=== PATIENT | male | born 1970 | race African-American/Black ===

== ENCOUNTER 2016-11-27 10:47 | Inpatient (IN) | payer MEDICAID ==
[~2016-11-27] VITALS: Ht 182.9 cm; Wt 76.2 kg
[~2016-11-27 10:47] MED LIST: PHEN100C4 PO
[2016-11-27] MEDS ORDERED: SODIUM CHLORIDE 0.9% 1,000 ML IV ONE (11:09)
[2016-11-27 11:48] LABS: BASOPHILS % 0.8 % (0.0-2.0); EOSINOPHILS % 0.2 % (0.0-5.0); HEMATOCRIT. 38.5 % (42.0-52.0); HEMOGLOBIN. 12.6 g/dL (14.0-18.0); LYMPHOCYTES % 13.6 % (20.0-50.0); MEAN CORPUSCULAR HGB CONC 32.7 g/dL (31.0-37.0); MEAN CORPUSCULAR VOLUME 85.7 fL (80.0-94.0); MEAN PLATELET VOLUME 7.5 fl (7.4-10.4); MONOCYTES % 4.8 % (2.0-8.0); NEUTROPHILS % 80.6 % (40.0-76.0); PLATELET 264 x1000/uL (130-400); RED BLOOD CELL COUNT 4.49 mill/uL (4.7-6.1); RED CELL DISTRIBUTION WIDTH 14.6 % (11.6-14.6); WHITE BLOOD COUNT 9.1 x1000/uL (4.5-11.0)
[2016-11-27 11:49] LABS: CHLORIDE 107 mEq/L (98-107); INDEX HEMOLYSI 1 (1-3); INDEX ICTERIC 1 (1-4); INDEX LIPEMIC 1 (1-3)
[2016-11-27 11:52] LABS: INR 1.1; PROTHROMBIN TIME 11.2 sec
[2016-11-27 11:58] LABS: ALANINE AMINOTRANSFERASE 37 IU/L (13-61); ALBUMIN 3.3 g/dL (3.4-5.0); ANION GAP 15; CALCIUM 8.6 mg/dL (8.5-10.1); CARBON DIOXIDE 22 mEq/L (21-32); ETHANOL BLOOD < 10 mg/dL; PHENYTOIN 3.4 ug/mL (10-20); UREA NITROGEN BLOOD 16 mg/dL (7-21); eGFR > 60 mL/min (>60)
[2016-11-27 12:15] LABS: CLARITY URINE CLEAR (CLEAR); COLOR URINE YELLOW (YELLOW); GLUCOSE URINE NEGATIVE (NEGATIVE); KETONES URINE TRACE (NEGATIVE); LEUKOCYTE ESTERASE URINE NEGATIVE (NEGATIVE); NITRITE URINE NEGATIVE (NEGATIVE); OCCULT BLOOD URINE 1+ (NEGATIVE); PROTEIN URINE NEGATIVE (NEGATIVE); SPECIFIC GRAVITY URINE 1.017 (1.005-1.030); UROBILINOGEN URINE 0.2 E.U./dL (0.2-1.0)
[2016-11-27 12:35] LABS: *AMPHETAMINES SCREEN URINE NEGATIVE (NEGATIVE); *BARBITURATES SCREEN URINE NEGATIVE (NEGATIVE); *BENZODIAZEPINES SCREEN URINE NEGATIVE (NEGATIVE); *COCAINE SCREEN URINE NEGATIVE (NEGATIVE); CANNABINOID URINE SCREEN PRESUMTIVE POSITIVE (NEGATIVE); ECSTASY MDMA SCREEN URINE NEGATIVE (NEGATIVE); METHADONE URINE SCREEN NEGATIVE (NEGATIVE); OPIATES URINE SCREEN NEGATIVE (NEGATIVE); PHENCYCLIDINE URINE SCREEN NEGATIVE (NEGATIVE)
[2016-11-27 12:43] LABS: SQUAMOUS EPITHELIAL CELL URINE RARE /lpf (RARE/1+); URIC ACID CRYSTALS URINE 3+ /lpf
[2016-11-27 12:44] LABS: BACTERIA URINE TRACE; RBC URINE NONE SEEN /hpf (0-2); WBC URINE NONE SEEN /hpf (0-2)
[2016-11-27 12:45] LABS: MUCUS URINE TRACE /lpf (NONE/TRACE)
[2016-11-27] MEDS ORDERED: PHENYTOIN SODIUM 1,000 MG in SODIUM CHLORIDE 0.9% 100 ML IV ONE (12:45)
[2016-11-27] MEDS ORDERED: LORAZEPAM 2MG/ML CPJ IV ONE ×3 (13:45→16:45)
[2016-11-27] MEDS: LORAZEPAM 2MG/ML CPJ IM PRN (15:00)
[2016-11-27] MEDS ORDERED: IPRATROPIUM/ALBUTEROL 0.5-3(2.5)MG/3ML NEB INH PRN (16:45)
[2016-11-27] MEDS ORDERED: HYDROCODONE/ACETAMINOPHEN 5/325MG TABLET PO PRN (16:45)
[2016-11-27] MEDS ORDERED: LORAZEPAM 2MG/ML CPJ IV PRN (16:45)
[2016-11-27] MEDS ORDERED: ONDANSETRON HCL 4MG/2ML VIAL IV PRN (16:45)
[2016-11-27] MEDS ORDERED: DIPHENHYDRAMINE 50MG/ML VIAL IV PRN (16:45)
[2016-11-27] MEDS ORDERED: CLONIDINE 0.1MG TABLET PO PRN (16:45)
[2016-11-27] MEDS ORDERED: ACETAMINOPHEN 325MG TABLET PO PRN (16:45)
[2016-11-27 18:20] VITALS: BP 127/85
[2016-11-27 20:00] VITALS: BP 134/88
[2016-11-27] MEDS ORDERED: PHENYTOIN SODIUM EXTENDED 100MG CAPSULE PO SCH (21:00)
[2016-11-28] VITALS: BP 104/83
[2016-11-28 04:00] VITALS: BP 118/85
[2016-11-28 06:47] LABS: BASOPHILS % 0.5 % (0.0-2.0); EOSINOPHILS % 0.3 % (0.0-5.0); HEMATOCRIT. 39.8 % (42.0-52.0); LYMPHOCYTES % 22.7 % (20.0-50.0); MEAN CORPUSCULAR HEMOGLOBIN 27.5 pg (28.0-32.0); MEAN CORPUSCULAR HGB CONC 32.8 g/dL (31.0-37.0); MEAN PLATELET VOLUME 7.8 fl (7.4-10.4); MONOCYTES % 6.1 % (2.0-8.0); NEUTROPHILS % 70.4 % (40.0-76.0); PLATELET 285 x1000/uL (130-400); RED BLOOD CELL COUNT 4.74 mill/uL (4.7-6.1); RED CELL DISTRIBUTION WIDTH 14.1 % (11.6-14.6); WHITE BLOOD COUNT 7.8 x1000/uL (4.5-11.0)
[2016-11-28 08:00] VITALS: BP 121/67
[2016-11-28 08:12] LABS: ALANINE AMINOTRANSFERASE 37 IU/L (13-61); ALBUMIN 3.5 g/dL (3.4-5.0); ANION GAP 14; CARBON DIOXIDE 23 mEq/L (21-32); CHLORIDE 104 mEq/L (98-107); INDEX HEMOLYSI 1 (1-3); INDEX ICTERIC 1 (1-4); INDEX LIPEMIC 1 (1-3); PHENYTOIN 11.9 ug/mL (10-20); UREA NITROGEN BLOOD 11 mg/dL (7-21); eGFR > 60 mL/min (>60)
[2016-11-28] MEDS ORDERED: PHENYTOIN SODIUM EXTENDED 100MG CAPSULE PO SCH (09:00)
[2016-11-28 11:40] VITALS: BP 108/72
[2016-11-28 15:53] VITALS: BP 139/80
[2016-11-28 20:00] VITALS: BP 120/82
[2016-11-29] VITALS: BP 110/80
[2016-11-29 04:00] VITALS: BP 111/74
[2016-11-29 06:48] LABS: BASOPHILS % 0.9 % (0.0-2.0); EOSINOPHILS % 0.8 % (0.0-5.0); HEMATOCRIT. 40.6 % (42.0-52.0); HEMOGLOBIN. 13.3 g/dL (14.0-18.0); LYMPHOCYTES % 42.7 % (20.0-50.0); MEAN CORPUSCULAR HEMOGLOBIN 28.2 pg (28.0-32.0); MEAN CORPUSCULAR HGB CONC 32.7 g/dL (31.0-37.0); MEAN CORPUSCULAR VOLUME 86.2 fL (80.0-94.0); MEAN PLATELET VOLUME 7.7 fl (7.4-10.4); MONOCYTES % 10.4 % (2.0-8.0); NEUTROPHILS % 45.2 % (40.0-76.0); PLATELET 254 x1000/uL (130-400); RED BLOOD CELL COUNT 4.71 mill/uL (4.7-6.1); RED CELL DISTRIBUTION WIDTH 14.2 % (11.6-14.6); WHITE BLOOD COUNT 4.6 x1000/uL (4.5-11.0)
[2016-11-29 07:24] LABS: ANION GAP 14; CALCIUM 9.2 mg/dL (8.5-10.1); CARBON DIOXIDE 26 mEq/L (21-32); CHLORIDE 103 mEq/L (98-107); INDEX HEMOLYSI 1 (1-3); INDEX ICTERIC 1 (1-4); INDEX LIPEMIC 1 (1-3); UREA NITROGEN BLOOD 16 mg/dL (7-21); eGFR > 60 mL/min (>60)
[2016-11-29 08:00] VITALS: BP 108/78
[2016-11-29] MEDS ORDERED: PHEN100C4 PO ×2 (11:31→14:19)
[2016-11-29 12:00] VITALS: BP 119/81
[2016-11-29 14:12] VITALS: BP 119/81
== END 2016-11-29 15:45 | disposition home or self-care (01) | DRG 53 ==
LOC: ER 11:01 → 8WST 14:51
PROVIDERS: ADMIT Internal Medicine; ATTEND Internal Medicine
DX: G40.901 Epilepsy, unspecified, not intractable, with status epilepticus (principal); I10 Essential (primary) hypertension; D64.9 Anemia, unspecified; F12.90 Cannabis use, unspecified, uncomplicated; Z87.828 Personal history of other (healed) physical injury and trauma; Z91.19 Patient's noncompliance with other medical treatment and regimen
CPT/HCPCS: 36415; 70450; 80048; 80053; 80185; 80305; 81001; 84484; 85025; 85610; 93005; 93306; 96365; 96366; 96372; 96375; 96376; 99291; G0482; J1165; J2060; J7030; J7050

== ENCOUNTER 2017-01-18 09:46 | Inpatient (IN) | payer MEDICAID ==
[~2017-01-18] VITALS: Ht 185.4 cm; Wt 81.6 kg
[2017-01-18 10:28] LABS: CLARITY URINE CLEAR (CLEAR); COLOR URINE YELLOW (YELLOW); GLUCOSE URINE NEGATIVE (NEGATIVE); KETONES URINE NEGATIVE (NEGATIVE); LEUKOCYTE ESTERASE URINE NEGATIVE (NEGATIVE); NITRITE URINE NEGATIVE (NEGATIVE); OCCULT BLOOD URINE 2+ (NEGATIVE); PROTEIN URINE NEGATIVE (NEGATIVE); SPECIFIC GRAVITY URINE 1.013 (1.005-1.030); UROBILINOGEN URINE 0.2 E.U./dL (0.2-1.0)
[2017-01-18 10:36] LABS: BASOPHILS % 0.4 % (0.0-2.0); HEMATOCRIT. 42.5 % (42.0-52.0); HEMOGLOBIN. 14.1 g/dL (14.0-18.0); LYMPHOCYTES % 7.6 % (20.0-50.0); MEAN CORPUSCULAR HEMOGLOBIN 28.1 pg (28.0-32.0); MEAN CORPUSCULAR VOLUME 85.1 fL (80.0-94.0); MEAN PLATELET VOLUME 7.6 fl (7.4-10.4); MONOCYTES % 4.7 % (2.0-8.0); NEUTROPHILS % 87.3 % (40.0-76.0); PLATELET 251 x1000/uL (130-400); RED BLOOD CELL COUNT 4.99 mill/uL (4.7-6.1); RED CELL DISTRIBUTION WIDTH 14.9 % (11.6-14.6)
[2017-01-18 10:43] LABS: CHLORIDE 111 mEq/L (98-107); PROTHROMBIN TIME 10.2 sec
[2017-01-18 10:51] LABS: *AMPHETAMINES SCREEN URINE NEGATIVE (NEGATIVE); *BARBITURATES SCREEN URINE NEGATIVE (NEGATIVE); *BENZODIAZEPINES SCREEN URINE NEGATIVE (NEGATIVE); *COCAINE SCREEN URINE NEGATIVE (NEGATIVE); CANNABINOID URINE SCREEN PRESUMTIVE POSITIVE (NEGATIVE); METHADONE URINE SCREEN NEGATIVE (NEGATIVE); OPIATES URINE SCREEN NEGATIVE (NEGATIVE); PHENCYCLIDINE URINE SCREEN NEGATIVE (NEGATIVE)
[2017-01-18 10:53] LABS: CARBON DIOXIDE 23 mEq/L (21-32); ETHANOL BLOOD < 10 mg/dL
[2017-01-18] MEDS ORDERED: LORAZEPAM 2MG/ML CPJ ONE (12:08)
[2017-01-18] MEDS ORDERED: LORAZEPAM 2MG/ML CPJ IV ONE ×2 (12:15→12:45)
[2017-01-18] MEDS ORDERED: PHENYTOIN SODIUM 1,000 MG in SODIUM CHLORIDE 0.9% 100 ML IV ONE (12:45)
[2017-01-18] MEDS ORDERED: IPRATROPIUM/ALBUTEROL 0.5-3(2.5)MG/3ML NEB INH PRN (13:00)
[2017-01-18] MEDS ORDERED: LORAZEPAM 2MG/ML CPJ IV PRN (13:00)
[2017-01-18] MEDS ORDERED: HYDROCODONE/ACETAMINOPHEN 5/325MG TABLET PO PRN (13:00)
[2017-01-18] MEDS ORDERED: CLONIDINE 0.1MG TABLET PO PRN (13:00)
[2017-01-18] MEDS ORDERED: ACETAMINOPHEN 325MG TABLET PO PRN (13:00)
[2017-01-18] MEDS ORDERED: DIPHENHYDRAMINE 50MG/ML VIAL IV PRN (13:00)
[2017-01-18] MEDS ORDERED: ONDANSETRON HCL 4MG/2ML VIAL IV PRN (13:00)
[2017-01-18 14:40] LABS: ETHANOL BLOOD < 10 mg/dL; TROPONIN I 0.02 ng/mL (0.00-0.04)
[2017-01-18 16:00] VITALS: BP 166/101
[2017-01-18 17:16] VITALS: BP 165/100
[2017-01-18 20:00] VITALS: BP 109/86
[2017-01-18] MEDS: PHENYTOIN SODIUM EXTENDED 100MG CAPSULE PO SCH (21:43)
[2017-01-19] VITALS: BP 125/86
[2017-01-19 04:00] VITALS: BP 125/92
[2017-01-19 06:11] LABS: BASOPHILS % 0.4 % (0.0-2.0); EOSINOPHILS % 0.1 % (0.0-5.0); HEMATOCRIT. 41.5 % (42.0-52.0); HEMOGLOBIN. 13.8 g/dL (14.0-18.0); LYMPHOCYTES % 19.8 % (20.0-50.0); MEAN CORPUSCULAR HEMOGLOBIN 28.3 pg (28.0-32.0); MEAN CORPUSCULAR VOLUME 84.9 fL (80.0-94.0); MEAN PLATELET VOLUME 7.9 fl (7.4-10.4); MONOCYTES % 7.8 % (2.0-8.0); NEUTROPHILS % 71.9 % (40.0-76.0); PLATELET 249 x1000/uL (130-400); RED BLOOD CELL COUNT 4.89 mill/uL (4.7-6.1); RED CELL DISTRIBUTION WIDTH 14.6 % (11.6-14.6)
[2017-01-19 07:02] LABS: CARBON DIOXIDE 24 mEq/L (21-32); CHLORIDE 108 mEq/L (98-107); HDL CHOLESTEROL 82 mg/dL (40-59); LDL CHOLESTEROL 133 mg/dL (5-100); PHENYTOIN 16.2 ug/mL (10-20)
[2017-01-19 08:00] VITALS: BP 116/78
[2017-01-19 12:00] VITALS: BP 124/75
[2017-01-19 16:00] VITALS: BP 119/78
[2017-01-19 20:00] VITALS: BP 117/80
[2017-01-19] MEDS ORDERED: ATORVASTATIN CALCIUM 20MG TABLET PO SCH (21:00)
[2017-01-19] MEDS: PHENYTOIN SODIUM EXTENDED 100MG CAPSULE PO SCH (21:35)
[2017-01-20] VITALS: BP 120/82
[2017-01-20 04:00] VITALS: BP 116/82
[2017-01-20 05:51] LABS: BASOPHILS % 0.8 % (0.0-2.0); EOSINOPHILS % 0.6 % (0.0-5.0); HEMATOCRIT. 42.8 % (42.0-52.0); HEMOGLOBIN. 14.3 g/dL (14.0-18.0); LYMPHOCYTES % 43.6 % (20.0-50.0); MEAN CORPUSCULAR HEMOGLOBIN 28.1 pg (28.0-32.0); MEAN CORPUSCULAR VOLUME 84.3 fL (80.0-94.0); MEAN PLATELET VOLUME 7.6 fl (7.4-10.4); MONOCYTES % 10.1 % (2.0-8.0); NEUTROPHILS % 44.9 % (40.0-76.0); PLATELET 240 x1000/uL (130-400); RED BLOOD CELL COUNT 5.09 mill/uL (4.7-6.1); RED CELL DISTRIBUTION WIDTH 14.5 % (11.6-14.6)
[2017-01-20 06:23] LABS: CHLORIDE 104 mEq/L (98-107)
[2017-01-20 06:33] LABS: CARBON DIOXIDE 25 mEq/L (21-32); PHENYTOIN 13.9 ug/mL (10-20)
[2017-01-20 08:00] VITALS: BP 114/75
[2017-01-20 11:11] VITALS: BP 114/75
[2017-01-20 12:00] VITALS: BP 118/69
== END 2017-01-20 14:03 | disposition home or self-care (01) | DRG 53 ==
LOC: ER 09:47 → 7WST 12:51
PROVIDERS: ADMIT Internal Medicine; ATTEND Internal Medicine
DX: G40.901 Epilepsy, unspecified, not intractable, with status epilepticus (principal); G93.40 Encephalopathy, unspecified; E78.00 Pure hypercholesterolemia, unspecified; F12.90 Cannabis use, unspecified, uncomplicated; F17.200 Nicotine dependence, unspecified, uncomplicated; Z91.14 Patient's other noncompliance with medication regimen; Z87.828 Personal history of other (healed) physical injury and trauma; Z91.19 Patient's noncompliance with other medical treatment and regimen
CPT/HCPCS: 36415; 70450; 80048; 80053; 80061; 80185; 80305; 81001; 83735; 84484; 85025; 85610; 87040; 96365; 96375; 97161; 97165; 99291; G0482; J1165; J2060; J7050

== ENCOUNTER 2017-11-15 10:48 | Emergency (ER) | payer MEDICAID ==
[~2017-11-15] VITALS: Ht 188 cm; Wt 82.0 kg
[2017-11-15] MEDS ORDERED: SODIUM CHLORIDE 0.9% 1,000 ML IV ONE (11:13)
[2017-11-15] MEDS ORDERED: LEVETIRACETAM 500MG PREMIX 100 ML IV ONE (11:15)
[2017-11-15 11:53] LABS: BASOPHILS % 0.2 % (0.0-2.0); HEMATOCRIT. 40.7 % (42.0-52.0); HEMOGLOBIN. 13.5 g/dL (14.0-18.0); LYMPHOCYTES % 8.3 % (20.0-50.0); MEAN CORPUSCULAR HEMOGLOBIN 28.3 pg (28.0-32.0); MEAN PLATELET VOLUME 7.5 fl (7.4-10.4); MONOCYTES % 5.6 % (2.0-8.0); NEUTROPHILS % 85.9 % (40.0-76.0); PLATELET 236 x1000/uL (130-400); RED BLOOD CELL COUNT 4.79 mill/uL (4.7-6.1)
[2017-11-15] MEDS ORDERED: LORAZEPAM 2MG/ML CPJ ONE (11:56)
[2017-11-15 12:00] LABS: PROTHROMBIN TIME 10.1 sec (9.4-11.6)
[2017-11-15] MEDS ORDERED: LORAZEPAM 2MG/ML CPJ IV ONE (12:00)
[2017-11-15 12:03] LABS: AMMONIA 42 uMol/L (<32)
[2017-11-15 12:05] LABS: CHLORIDE 112 mEq/L (98-107); ETHANOL BLOOD < 10 mg/dL
[2017-11-15 12:16] LABS: CREATINE KINASE 553 IU/L (39-308)
[2017-11-15 12:17] LABS: CARBAMAZEPINE < 0.5 ug/mL (4-12); PHENOBARBITAL < 2.1 ug/mL (15.0-40.0)
[2017-11-15 12:33] LABS: CLARITY URINE CLOUDY (CLEAR); COLOR URINE YELLOW (YELLOW); KETONES URINE NEGATIVE (NEGATIVE); LEUKOCYTE ESTERASE URINE NEGATIVE (NEGATIVE); NITRITE URINE NEGATIVE (NEGATIVE); OCCULT BLOOD URINE 3+ (NEGATIVE); PROTEIN URINE 2+ (NEGATIVE); SPECIFIC GRAVITY URINE 1.016 (1.005-1.030); UROBILINOGEN URINE 0.2 E.U./dL (0.2-1.0)
[2017-11-15 12:48] LABS: *AMPHETAMINES SCREEN URINE NEGATIVE (NEGATIVE); *BARBITURATES SCREEN URINE NEGATIVE (NEGATIVE); *BENZODIAZEPINES SCREEN URINE NEGATIVE (NEGATIVE); *COCAINE SCREEN URINE NEGATIVE (NEGATIVE); METHADONE URINE SCREEN NEGATIVE (NEGATIVE); OPIATES URINE SCREEN NEGATIVE (NEGATIVE)
[2017-11-15 12:49] LABS: CANNABINOID URINE SCREEN PRESUMTIVE POSITIVE (NEGATIVE); PHENCYCLIDINE URINE SCREEN NEGATIVE (NEGATIVE)
[2017-11-15 19:34] VITALS: BP 159/100
== END 2017-11-15 21:33 | disposition home or self-care (01) ==
LOC: ER 10:56
DX: G40.409 Other generalized epilepsy and epileptic syndromes, not intractable, without status epilepticus (principal); G93.40 Encephalopathy, unspecified; R79.1 Abnormal coagulation profile; R94.6 Abnormal results of thyroid function studies; F12.10 Cannabis abuse, uncomplicated; R53.83 Other fatigue; Z98.890 Other specified postprocedural states
CPT/HCPCS: 36415; 80053; 80156; 80165; 80184; 80185; 80305; 81003; 82140; 82550; 83880; 84443; 84484; 85025; 85610; 93005; 96365; 96375; 99285; G0482; J1953; J2060; J7030; Z7610